=== PATIENT | female | born 1945 | race Caucasian/White ===

== ENCOUNTER → 2016-05-24 | Outpatient (CLI) | payer BC ==
[~2016-05-24] MED LIST: AZITTAB PO
--- NOTE | 2016-05-24 13:24 | MAMMOGRAPHY REPORT ---
BILATERAL DIGITAL DIAGNOSTIC MAMMOGRAM TOMOSYNTHESIS WITH CAD AND TARGETED LEFT ULTRASOUND: 7 CLINICAL HISTORY: 71-year-old woman presents with a change in skin color in the upper outer quadrant of the left breast for approximately one month. She reports the changes as "rosiness". No obvious skin thickening, palpable mass or nipple discharge. Patient denies fevers, chills, pain over the s kin changes. Family history of breast cancer = mother. TECHNIQUE: Bilateral breast tomosynthesis in addition to standard 2D mammography was performed. Curr ent study was also evaluated with a Computer Aided Detection (CAD) system. COMPARISON: Comparison is made to exams dated: 11/11/2014 mammogram, 09/11/2012 mammogram, 09/09/2011 mammogram, 09/07/2010 mammogram, and 09/03/2009 mammogram - [facility]. BREAST COMPOSITION: There are scattered areas of fibroglandular density in both breasts. FINDINGS: A triangular skin palpable marker overlies the upper outer middle one third of the left br east. There is regional asymmetry in the upper outer quadrant of the left breast that appears simil ar on all available prior mammograms dating back to at least 2005, likely the patient's baseline. T here are benign rim and rodlike calcifications in the breasts. No new suspicious mass, architectura l distortion or cluster of microcalcifications is seen. On visual inspection there is an ill-defined 6 x 7 cm vaguely erythematous patch occupying the 12:00 through 3:00 axes of the left breast 1 cm to 7 cm from the nipple. No peau d'orange identified. O n ultrasound, there is no evidence of focal skin thickening in the area of skin changes. No suspici ous solid or cystic mass identified within the breast parenchyma in the upper outer quadrant of the left breast. IMPRESSION: ACR BI-RADS CATEGORY 2: BENIGN, TARGETED ULTRASOUND ACR BI-RADS CATEGORY 2: BENIGN 1. Stable mammographic appearance of the breasts, without mammographic evidence of malignancy. No suspicious sonographic abnormality or focal skin thickening is identified in the area of skin change s within the left upper outer quadrant, correlating with the skin changes pointed out by the patient . 2. Therefore, clinical follow-up and dermatologic consultation are recommended. 3. Recommend bilateral mammography in one year. These results and recommendations were discussed with the patient at the time of the exam. Approximately 10% of breast cancers are not detected with mammography. A negative mammographic repor t should not delay biopsy if a clinically suggestive mass is present. Danita Hyman M.D. ay/:05/24/2016 09:34:55 Materials Engineering Technician: Perla Swanson, [facility] letter sent: Normal 1/2 BI-RADS Code: ACR BI-RADS Category 2: Benign Ultrasound BI-RADS: ACR BI-RADS Category 2: Benign
== END | disposition home or self-care (01) ==
LOC: C.MAMM 08:26
PROVIDERS: ATTEND Family Medicine
DX: R23.2 Flushing (principal)

== ENCOUNTER → 2017-03-27 | Outpatient (CLI) | payer BC ==
[2017-03-27 13:36] LABS: BLOOD UREA NITROGEN 16 mg/dl (7-18); BUN/CREATININE RATIO 16.8 (10-20); CREATININE 0.96 mg/dl (0.60-1.20)
== END | disposition home or self-care (01) ==
LOC: C.LABBC 11:26
PROVIDERS: ATTEND Internal Medicine Cardiovascular Disease
DX: R07.81 Pleurodynia (principal)

== ENCOUNTER → 2017-03-30 | Outpatient (CLI) | payer BC ==
[~2017-03-30] MED LIST changes: +GADAVIST IV PRN
--- NOTE | 2017-03-30 15:52 | DIAGNOSTIC IMAGING REPORT ---
MRI OF THE BRAIN COMBO CLINICAL HISTORY: Right upper extremity paresthesias. COMPARISON STUDY: No priors. TECHNIQUE: MRI of the brain was performed utilizing various T1 and T2-weighted sequences in the axial, sagittal, and coronal planes. Contrast-enhanced sequences were acquired following the administration of 6.5 cc of Gadavist. FINDINGS: Brain parenchyma: There are age-related involutional changes noting minimal subcortical and periventricular microangiopathic disease. There is no hemorrhage or mass effect. There is no restricted diffusion to suggest acute ischemia. No enhancing mass lesion is identified on the postcontrast images. There is a subtle 14 mm focus of increased T2 signal identified within the left aspect of the susie. This is best seen on coronal FLAIR image #14 and axial T2 image #8. There is no associated restricted diffusion or abnormal enhancement. Mendoza-white matter differentiation is preserved. No extra-axial fluid collection is seen. The cerebellar tonsils are normal in configuration. Ventricles, sulci, and cisterns: Prominent secondary to involutional change. Pituitary and sella: Unremarkable. Intracranial vasculature: Normal flow voids are maintained at the skull base. Orbits: The bony orbits are grossly intact. Orbital contents are normal in appearance. Sinuses and mastoids: Clear. Calvarium: Unremarkable. Cervical cord: Partially visualized cervical spinal cord is normal in morphology and signal intensity. IMPRESSION: 1. There is no hemorrhage, enhancing mass, or evidence of acute ischemia. 2. There is a subtle indeterminant 14 mm focus of increased T2 signal identified within the left aspect of the susie. There is no associated abnormal enhancement, restricted diffusion, or edema and this is of unknown significance, possibly related to a remote insult. Less likely, a low-grade glioma could potentially of this appearance. A six-month follow-up MRI is recommended for reassessment. If any prior outside imaging studies have been performed these would be useful for comparison purposes. Electronically signed by: Britton Méndez M.D. 03/30/2017 3:50 PM Dictated Date/Time: 03/30/2017 3:42 PM
== END | disposition home or self-care (01) ==
LOC: C.MRI 14:02
PROVIDERS: ATTEND Physician Assistant Medical
DX: R20.2 Paresthesia of skin (principal)